=== PATIENT | female | born 1990 | race Caucasian/White ===

== ENCOUNTER 2018-04-04 09:42 | Inpatient (IN) | payer MEDICAID ==
[2018-04-04 10:36] LABS: RUPTURE FETAL MEMBRANES NEGATIVE (NEGATIVE)
[2018-04-04] MEDS: LACTATED RINGER'S 1,000 ML IV ×2 (10:39→23:00)
[2018-04-04 10:48] LABS: ADD MAN DIFF? NO
[2018-04-04 10:52] LABS: BASOPHIL # 0.1 10^3/ul (0.0-0.1); BASOPHILS % 0.6 % (0.0-2.0); EOSINOPHILS # 0.1 10^3/ul (0.0-0.5); EOSINOPHILS % 1.7 % (0.0-7.0); HEMATOCRIT 34.3 % (37.0-47.0); HEMOGLOBIN 11.6 g/dl (12.0-16.0); LYMPHOCYTES # 1.6 10^3/ul (0.8-2.9); LYMPHOCYTES % 19.6 % (15.0-51.0); MEAN CORPUSCULAR HEMOGLOBIN 30.4 pg (29.0-33.0); MEAN CORPUSCULAR HGB CONC 33.8 g/dl (32.0-37.0); MEAN PLATELET VOLUME 9.8 fl (7.4-10.4); MONOCYTE # 0.5 10^3/ul (0.3-0.9); MONOCYTES % 6.5 % (0.0-11.0); NEUTROPHIL # 5.8 10^3/ul (1.6-7.5); NEUTROPHILS % 69.4 % (39.0-77.0); PLATELET COUNT 189 10^3/UL (140-415); RED BLOOD COUNT 3.81 10^6/ul (4.20-5.40); RED CELL DISTRIBUTION WIDTH 12.6 % (11.5-14.5)
[2018-04-04 10:52] LABS: WHITE BLOOD COUNT 8.4 10^3/ul (4.8-10.8)
[2018-04-04] MEDS ORDERED: METHYLERGONOVINE 0.2 MG INJ IM (11:00)
[2018-04-04] MEDS ORDERED: OXYTOCIN 30 UNITS/LR 500 ML IV ×2 (11:00→18:30)
[2018-04-04] MEDS ORDERED: BUTORPHANOL 2 MG INJ IV (11:00)
[2018-04-04] MEDS ORDERED: CARBOPROST 250 MCG INJ IM ×2 (11:00→18:30)
[2018-04-04] MEDS ORDERED: MISOPROSTOL 200 MCG TAB PR ×2 (11:00→18:30)
[2018-04-04] MEDS ORDERED: LIDOCAINE 1% (MPF) 30 ML INJ INJ (11:00)
[2018-04-04 11:17] LABS: INR 0.86; PROTIME 11.8 Sec (11.9-14.9); PT RATIO 0.9
[2018-04-04 11:18] LABS: PARTIAL THROMBOPLASTIN TIME 24.6 Sec (23.0-35.0)
[2018-04-04] MEDS: AMPICILLIN 1 GM/NS (PMX) 50 ML IV ×3 (14:30→22:30)
[2018-04-04 18:28] LABS: RAPID PLASMA REAGIN NONREACTIVE (NR)
[2018-04-04] MEDS ORDERED: NA PHOSPHATE/BIPHOS 133 ML ENEMA PR (18:30)
[2018-04-04] MEDS ORDERED: SENNA/DOCUSATE NA (8.6MG/50MG) TAB PO (18:30)
[2018-04-04] MEDS ORDERED: DIBUCAINE 1% 30 GM OINT TOP (18:30)
[2018-04-04] MEDS ORDERED: MAGNESIUM HYDROXIDE 30ML CUP PO (18:30)
[2018-04-04] MEDS ORDERED: ONDANSETRON 4 MG TAB PO (18:30)
[2018-04-04] MEDS ORDERED: DIPHENHYDRAMINE 25 MG CAP PO (18:30)
[2018-04-04] MEDS ORDERED: ONDANSETRON 4 MG INJ IV (18:30)
[2018-04-04] MEDS ORDERED: DIPHENHYDRAMINE 50 MG INJ IV (18:30)
[2018-04-04] MEDS ORDERED: HYDROCODONE/APAP (5/325) TAB PO (18:30)
[2018-04-04] MEDS: OXYTOCIN 30 UNITS/LR 500 ML IV ×2 (18:44→18:45)
[2018-04-04 20:27] LABS: HEPATITIS B SURFACE ANTIGEN NEGATIVE (NEGATIVE)
[2018-04-04] MEDS: SENNA/DOCUSATE NA (8.6MG/50MG) TAB PO (21:00)
[2018-04-04] MEDS: LACTATED RINGER'S 1,000 ML IV* (22:37)
[2018-04-04] MEDS: IBUPROFEN 600 MG TAB PO (23:40)
[2018-04-05] MEDS: LACTATED RINGER'S 1,000 ML IV* (02:13)
[2018-04-05] MEDS: AMPICILLIN 2 GM/NS (PMX) 100 ML IV (02:14)
[2018-04-05] MEDS: AMPICILLIN 1 GM/NS (PMX) 50 ML IV ×2 (02:30→06:30)
[2018-04-05] MEDS: LACTATED RINGER'S 1,000 ML IV (02:31)
[2018-04-05] MEDS: IBUPROFEN 600 MG TAB PO ×4 (05:15→23:46)
[2018-04-05 05:16] LABS: ADD MAN DIFF? NO
[2018-04-05 05:20] LABS: WHITE BLOOD COUNT 12.5 10^3/ul (4.8-10.8)
[2018-04-05 05:20] LABS: BASOPHILS % 0.3 % (0.0-2.0); EOSINOPHILS # 0.2 10^3/ul (0.0-0.5); EOSINOPHILS % 1.6 % (0.0-7.0); HEMATOCRIT 31.7 % (37.0-47.0); HEMOGLOBIN 10.9 g/dl (12.0-16.0); LYMPHOCYTES # 2.6 10^3/ul (0.8-2.9); LYMPHOCYTES % 21.2 % (15.0-51.0); MEAN CORPUSCULAR HEMOGLOBIN 30.8 pg (29.0-33.0); MEAN CORPUSCULAR HGB CONC 34.4 g/dl (32.0-37.0); MEAN CORPUSCULAR VOLUME 89.5 fl (82.0-101.0); MEAN PLATELET VOLUME 10.5 fl (7.4-10.4); MONOCYTE # 1.2 10^3/ul (0.3-0.9); MONOCYTES % 9.4 % (0.0-11.0); NEUTROPHIL # 8.3 10^3/ul (1.6-7.5); NEUTROPHILS % 66.3 % (39.0-77.0); PLATELET COUNT 199 10^3/UL (140-415); RED BLOOD COUNT 3.54 10^6/ul (4.20-5.40); RED CELL DISTRIBUTION WIDTH 12.5 % (11.5-14.5)
[2018-04-05] MEDS: WITCH HAZEL/GLYCERIN PAD PR (06:35)
[2018-04-05] MEDS: LANOLIN HPA 1 PKT TOP (06:35)
[2018-04-05] MEDS: BENZOCAINE 20% 56 ML SPRAY TOP (06:35)
[2018-04-05] MEDS: HYDROCODONE/APAP (5/325) TAB PO (08:35)
[2018-04-05] MEDS: SENNA/DOCUSATE NA (8.6MG/50MG) TAB PO ×2 (08:35→21:25)
[2018-04-06] MEDS: IBUPROFEN 600 MG TAB PO ×2 (06:00→12:00)
[2018-04-06] MEDS: DIPHTH/TET/ACEL PERTUSS (ADULT) 0.5 ML VIAL IM* (09:00)
[2018-04-06] MEDS: SENNA/DOCUSATE NA (8.6MG/50MG) TAB PO (09:00)
[2018-04-06] MEDS: MEASLES,MUMPS,RUBELLA VACCINE INJ SC* (09:00)
[2018-04-06] MEDS: VARICELLA VACCINE LIVE/PF 1,350 UNIT/0.5 ML ML SC* (09:00)
== END 2018-04-06 16:30 | disposition home or self-care (01) | DRG 807 ==
LOC: OBT 09:42 → L-D 09:42 → OBT 09:58 → L-D 10:51 → MS1 20:37
PROVIDERS: Specialist
PROC: 10E0XZZ Delivery of Products of Conception, External Approach (ICD-10-PCS; principal; 2018-04-04)
PROC: 0HQ9XZZ Repair Perineum Skin, External Approach (ICD-10-PCS; 2018-04-04)
DX: O70.0 First degree perineal laceration during delivery (principal); Z37.0 Single live birth; Z3A.39 39 weeks gestation of pregnancy
CPT/HCPCS: 76815; 84112; 85025; 85610; 85730; 86592; 86850; 86900; 86901; 87340; 90715; 90716